=== PATIENT | female | born 1990 | race African-American/Black ===

== ENCOUNTER 2025-07-19 23:15 | Emergency (ER) | payer MEDICAID ==
[~2025-07-19] VITALS: Ht 172.7 cm; Wt 72.6 kg
[2025-07-20 00:56] LABS: BASOPHILS % 0.4 % (0.0-2.0); EOSINOPHILS % 0.1 % (0.0-5.0); HEMATOCRIT. 39.3 % (36.0-48.0); HEMOGLOBIN. 13.0 g/dL (12.0-16.0); LYMPHOCYTES % 13.6 % (20.0-50.0); MEAN PLATELET VOLUME 7.0 fl (7.4-10.4); MONOCYTES % 5.4 % (2.0-8.0); NEUTROPHILS % 80.5 % (40.0-76.0); PLATELET 294 x1000/uL (130-400); RED BLOOD CELL COUNT 4.69 mill/uL (4.2-5.4); RED CELL DISTRIBUTION WIDTH 14.9 % (11.6-14.6)
[2025-07-20 01:09] LABS: CREATININE 1.0 mg/dL (0.6-1.0)
[2025-07-20 01:10] LABS: ETHANOL BLOOD < 10 mg/dL (<10); UREA NITROGEN BLOOD 19 mg/dL (9-23)
[2025-07-20 01:11] LABS: ASPARTATE AMINOTRANSFERASE 30 IU/L (<34)
[2025-07-20 01:12] LABS: BILIRUBIN DIRECT 0.1 mg/dL (<=3.0); BILIRUBIN TOTAL 0.5 mg/dL (0.1-1.0); PROTEIN TOTAL 7.4 g/dL (6.0-8.3)
[2025-07-20 01:29] LABS: HCG SCREEN NEGATIVE
[2025-07-20] MEDS: LORAZEPAM 2MG/ML UD SYRINGE IM NR (01:30)
[2025-07-20] MEDS: DIPHENHYDRAMINE 50MG/ML VIAL IV NR (01:30)
[2025-07-20] MEDS: HALOPERIDOL LACTATE 5MG/ML VIAL IM NR (01:30)
[2025-07-20 02:00] LABS: CLARITY URINE CLEAR (CLEAR); COLOR URINE YELLOW (YELLOW); GLUCOSE URINE NEGATIVE (NEGATIVE); KETONES URINE NEGATIVE (NEGATIVE); LEUKOCYTE ESTERASE URINE NEGATIVE (NEGATIVE); NITRITE URINE NEGATIVE (NEGATIVE); OCCULT BLOOD URINE NEGATIVE (NEGATIVE); PH URINE 5.5 (4.5-8.0); PROTEIN URINE 1+ (NEGATIVE); SPECIFIC GRAVITY URINE 1.031 (1.005-1.030); UROBILINOGEN URINE 0.2 E.U./dL (0.2-1.0)
[2025-07-20 02:20] LABS: *AMPHETAMINES SCREEN URINE NEGATIVE (NEGATIVE); *BARBITURATES SCREEN URINE NEGATIVE (NEGATIVE); *BENZODIAZEPINES SCREEN URINE NEGATIVE (NEGATIVE); *COCAINE SCREEN URINE NEGATIVE (NEGATIVE); CANNABINOID URINE SCREEN PRESUMPTIVE POSITIVE (NEGATIVE); ECSTASY MDMA SCREEN URINE NEGATIVE (NEGATIVE); METHADONE URINE SCREEN NEGATIVE (NEGATIVE); OPIATES URINE SCREEN NEGATIVE (NEGATIVE); PHENCYCLIDINE URINE SCREEN NEGATIVE (NEGATIVE)
[2025-07-20 02:30] VITALS: O2SAT 98
[2025-07-20 04:05] LABS: RBC URINE 0-2 /hpf (0-2); WBC URINE 0-2 /hpf (0-2)
[2025-07-20 04:06] LABS: SQUAMOUS EPITHELIAL CELL URINE FEW /lpf (RARE/1+)
[2025-07-20 04:07] LABS: BACTERIA URINE NONE SEEN
[2025-07-20] MEDS ORDERED: HYDROXYZINE 25MG TABLET PO PRN (07:15)
[2025-07-20 10:10] VITALS: BP 117/80; PULSE 91; RESP 18; TEMP 37; O2SAT 98
== END 2025-07-20 09:18 ==
LOC: ER 23:15
DX: F22 Delusional disorders (principal); F43.10 Post-traumatic stress disorder, unspecified; F41.9 Anxiety disorder, unspecified; Z20.822 Contact with and (suspected) exposure to COVID-19; Z79.899 Other long term (current) drug therapy
CPT/HCPCS: 99291; 80076; 80305; 80048; 81003; 80307; 80329; 80320; 84703; 85025; 36415; 96372; 96374; 87426; J1200; J1630; J2060; Z7610 ×3; G0480

== ENCOUNTER 2025-08-16 17:03 | Emergency (ER) | payer MEDICAID ==
[~2025-08-16] VITALS: Ht 172.7 cm; Wt 121.0 kg
[2025-08-16 17:05] VITALS: O2SAT 99
[2025-08-16 18:02] LABS: BASOPHILS % 0.5 % (0.0-2.0); EOSINOPHILS % 1.1 % (0.0-5.0); HEMATOCRIT. 40.3 % (36.0-48.0); HEMOGLOBIN. 13.2 g/dL (12.0-16.0); LYMPHOCYTES % 31.9 % (20.0-50.0); MEAN PLATELET VOLUME 7.2 fl (7.4-10.4); MONOCYTES % 4.6 % (2.0-8.0); NEUTROPHILS % 61.9 % (40.0-76.0); PLATELET 299 x1000/uL (130-400); RED BLOOD CELL COUNT 4.73 mill/uL (4.2-5.4); RED CELL DISTRIBUTION WIDTH 14.7 % (11.6-14.6)
[2025-08-16 18:15] LABS: CREATININE 0.9 mg/dL (0.6-1.0); UREA NITROGEN BLOOD 7 mg/dL (9-23)
[2025-08-16 18:21] LABS: HCG SCREEN NEGATIVE
[2025-08-16 19:02] LABS: *AMPHETAMINES SCREEN URINE NEGATIVE (NEGATIVE); *BARBITURATES SCREEN URINE NEGATIVE (NEGATIVE); *BENZODIAZEPINES SCREEN URINE NEGATIVE (NEGATIVE); *COCAINE SCREEN URINE NEGATIVE (NEGATIVE); CANNABINOID URINE SCREEN PRESUMPTIVE POSITIVE (NEGATIVE); ECSTASY MDMA SCREEN URINE NEGATIVE (NEGATIVE); METHADONE URINE SCREEN NEGATIVE (NEGATIVE); OPIATES URINE SCREEN NEGATIVE (NEGATIVE); PHENCYCLIDINE URINE SCREEN NEGATIVE (NEGATIVE)
[2025-08-16] MEDS: DIPHENHYDRAMINE 50MG/ML VIAL IM ONE (21:12)
[2025-08-16] MEDS: LORAZEPAM 2MG/ML UD SYRINGE IM NR (21:12)
[2025-08-16] MEDS: HALOPERIDOL LACTATE 5MG/ML VIAL IM ONE (21:13)
[2025-08-17] MEDS: OLANZAPINE 10 MG/VIAL IM ONE (13:00)
[2025-08-17] MEDS: LORAZEPAM 2MG/ML UD SYRINGE IM NR (13:00)
[2025-08-17] MEDS ORDERED: BUPROPION HCL 150MG TABLET XL 24HR PO SCH (13:45)
[2025-08-17] MEDS: BUPROPION HCL 150MG TABLET XL 24HR PO SCH (14:30)
[2025-08-17] MEDS: NICOTINE 21MG PATCH TD SCH (14:30)
[2025-08-17] MEDS: BUPROPION HCL 150MG TABLET XL 24HR PO ONE (22:04)
[2025-08-17 23:20] VITALS: BP 118/80; PULSE 91; RESP 16; TEMP 36.8; O2SAT 96
== END 2025-08-17 23:52 ==
LOC: ER 17:03
DX: R45.851 Suicidal ideations (principal); R45.850 Homicidal ideations; Z79.899 Other long term (current) drug therapy; Z20.822 Contact with and (suspected) exposure to COVID-19
CPT/HCPCS: 80305; 80048; 80307; 80329; 80320; 84703; 85025; 36415; 93005; 96372 ×2; 99291; 87426; J1200; J1630; J2060 ×2; J3490; G0480